=== PATIENT | female | born 1975 | race African-American/Black ===

== ENCOUNTER → 2017-01-23 | Outpatient (CLI) | payer BC, OTHER | LOC: MC.RAD 10:44 | DX: Z12.31 Encounter for screening mammogram for malignant neoplasm of breast (principal) ==

== ENCOUNTER → 2017-02-09 | Outpatient (CLI) | payer BC, OTHER | LOC: MC.RAD 08:03 | DX: N60.01 Solitary cyst of right breast (principal) ==

== ENCOUNTER → 2017-05-05 | Outpatient (CLI) | payer BC, OTHER ==
[2017-05-05 08:14] LABS: ARTERIAL BLD GAS O2 SATURATION 97.2 % (92-100); ARTERIAL BLD GAS TCO2 CT 19.4; ARTERIAL BLOOD GAS BASE EXCESS -4.4 (-2-2); ARTERIAL BLOOD GAS HCO3 18.5 meq/L (22-26); ARTERIAL BLOOD GAS PHT 7.43 C (7.35-7.45); ARTERIAL BLOOD GAS pH 7.43 (7.35-7.45); OXYHEMOGLOBIN 96.4 %
[2017-05-05 08:15] LABS: ALLEN TEST YES; ALLENS TEST RESULT PASS; ATS? YES
== END ==
LOC: COL.PUL 07:30
PROVIDERS: Internal Medicine Interventional Cardiology
DX: R06.02 Shortness of breath (principal)

== ENCOUNTER → 2017-07-04 | Outpatient (CLI) | payer BC, OTHER | LOC: COL.RAD 07:48 | DX: R10.2 Pelvic and perineal pain (principal); Z90.710 Acquired absence of both cervix and uterus ==

== ENCOUNTER → 2017-07-10 | Outpatient (CLI) | payer BC, OTHER | LOC: COL.RAD 07:17 | DX: R10.9 Unspecified abdominal pain (principal) | CPT/HCPCS: J7050; Q9967 ==

== ENCOUNTER → 2017-08-09 | Outpatient (CLI) | payer BC, OTHER | LOC: COL.RAD 07:39 | DX: R14.0 Abdominal distension (gaseous) (principal); R11.0 Nausea; K59.09 Other constipation; Z90.710 Acquired absence of both cervix and uterus | CPT/HCPCS: A9585 ==